=== PATIENT | male | born 1975 | race Caucasian/White ===

== ENCOUNTER 2019-01-25 19:07 | Inpatient (IN) | payer BC, OTHER ==
[2019-01-25] MEDS ORDERED: Piperacillin/Tazobactam 4.5 GM VIAL ONE (19:40)
[2019-01-25 20:12] LABS: Mean Corpuscular Volume 85.9 fL (78.0-98.0)
[2019-01-25 20:21] LABS: ALT (SGPT) 33 U/L (8-55); AST (SGOT) 24 U/L (5-34); Albumin 4.1 g/dL (3.5-5.0); Alkaline Phosphatase 63 U/L (40-150); Anion Gap 13 mmol/L (10-20); BUN (Urea Nitrogen) 13 mg/dL (8.9-20.6); Bilirubin, Total 0.7 mg/dL (0.2-1.2); Calc. Creatinine Clearance 0 mL/min (70-130); Calcium 9.6 mg/dL (7.8-10.44); Carbon Dioxide 24 mmol/L (22-29); Chloride 103 mmol/L (98-107); Estimated GFR-MDRD 85; Glucose 105 mg/dL (70-105); Potassium 3.6 mmol/L (3.5-5.1); Protein, Total 7.1 g/dL (6.0-8.3); Sodium 136 mmol/L (136-145)
[2019-01-25 20:24] LABS: Band 8 % (5-11); Hemoglobin 14.6 g/dL (14.0-18.0); Lymphocytes 17 % (21-51); MDiff Complete? YES; Mean Corpuscular HGB CONC 33.7 g/dL (32.0-36.0); Mean Platelet Volume 8.3 fL (7.4-10.4); Monocytes 2 % (0-10); Neutrophil 73 % (42-75); Platelet Count 122 thou/uL (130-400); Platelet Morphology Comment Appears Adequate; RBC Distribution Width 13.2 % (11.5-14.5); Red Blood Cell (RBC) Count 5.02 mill/uL (4.70-6.10); White Blood Cell (WBC) Count 13.2 thou/uL (4.8-10.8)
--- NOTE | 2019-01-25 22:13 | ULT ---
EXAM: Bilateral lower extremity venous ultrasound HISTORY: Right calf pain with redness and edema COMPARISON: None TECHNIQUE: Multiplanar grayscale and color Doppler images were obtained in a bilateral lower extremit y venous ultrasound. Spectral analysis of the Doppler waveforms were performed. FINDINGS: The bilateral common femoral vein, profunda femoral veins, superficial femoral veins, and p opliteal veins are normal in appearance without visible thrombus. These vessels demonstrate normal compression, flow, and augmentation. There is a small amount of partial thrombus in the right posterior tibial vein. The right greater sap henous vein is patent. The left posterior tibial vein and greater saphenous vein are patent without evidence of DVT. IMPRESSION: 1. No evidence of DVT above the knee. 2. Partially occlusive thrombus in the right posterior tibial vein
[2019-01-25] MEDS ORDERED: Acetaminophen 325 MG TAB PO PRN ×2 (23:11→23:40)
[2019-01-25] MEDS ORDERED: Ondansetron PF 4 MG/2 ML Vial IVP PRN ×2 (23:11→23:40)
[2019-01-25] MEDS ORDERED: Ondansetron ODT 4 MG TAB SL PRN (23:11)
[2019-01-25] MEDS: Sodium Chloride 0.9% 1,000 ML IV SCH (23:30)
[2019-01-25] MEDS ORDERED: Senokot S 8.6-50 MG TAB PO PRN (23:40)
[2019-01-25] MEDS ORDERED: HYDROcodone/Acetaminophen 5/325 mg Tablet PO PRN (23:40)
[2019-01-25] MEDS ORDERED: Calcium Carbonate 500 MG ChewTAB PO PRN (23:40)
[2019-01-25] MEDS ORDERED: Ondansetron ODT 4 MG TAB PO PRN (23:40)
[2019-01-25] MEDS ORDERED: Vancomycin HCl 1 GM in Premix Bag 1 BAG IVPB SCH (23:45)
--- NOTE | 2019-01-26 00:06 | HP ---
CHIEF COMPLAINT: Fever with right lower extremity redness. HISTORY OF PRESENT ILLNESS: The patient is a 43-year-old man who presented to the emergency room with above complaints. Last week, the patient was in [facility] for vacation. He currently works in [place]. He noticed a small pustule on the lateral aspect of the right leg last week. It spontaneously ruptured and healed. Over the last 2 days, the patient noticed erythema over his entire right leg between the knee and the ankle. He denies any erythema or tenderness in the knee or ankle. He also had fever up to 101 degrees Fahrenheit. He had pain that was moderate in intensity. His right upper extremity was warm. He had mild nausea and felt generally weak. He spent most of his time sleeping yesterday due to generalized weakness. He took Tylenol which helped with fever. PAST MEDICAL HISTORY: Reviewed with the patient and none. PAST SURGICAL HISTORY: Reviewed with the patient and none. ALLERGIES: THE PATIENT IS ALLERGIC TO RIFAMPIN, BACTRIM, AND IBUPROFEN. SOCIAL HISTORY: The patient denies any smoking, alcohol, or drug use. He is in [place] most of the time. FAMILY HISTORY: Negative for heart disease or hypercoagulable state. REVIEW OF SYSTEMS: All other review of systems were reviewed and were found negative. PHYSICAL EXAMINATION: VITAL SIGNS: Temperature 98.6, respirations of 19, pulse rate of 93, blood pressure of 169/104, O2 saturation of 96% on room air. GENERAL: A 43-year-old male, in no apparent distress. HEENT: Head; atraumatic, normocephalic. Sclerae are anicteric. Moist mucous membrane. No oral lesion. NECK: Supple. No JVD appreciated. No carotid bruit. LUNGS: Clear to auscultation bilaterally. No wheezing, rales, rhonchi. HEART: S1, S2 present. Regular rate and rhythm. No murmurs, rubs, or gallops appreciated. ABDOMEN: Soft, nontender. Bowel sounds are present. EXTREMITIES: There is significant erythema along with tenderness and warmth in the right leg. No calf tenderness. SKIN: Warm and dry. LYMPH NODES: No palpable lymph nodes in the neck. PERIPHERAL VASCULAR: Radial pulses are palpable bilaterally. MUSCULOSKELETAL: No joint swelling, tenderness. LABORATORY FINDINGS: WBC 13.2, hemoglobin 14.6, hematocrit 43.2, platelet 122. Chemistry showed sodium 136, potassium 3.6, chloride 103, bicarb 24, BUN 13, and creatinine 0.96. LFTs in normal range. Right lower extremity Doppler showed partially occlusive thrombus in the right posterior tibial vein. IMPRESSION: 1. Sepsis secondary to right lower extremity cellulitis. 2. Incidental finding of partially occlusive thrombus in the right posterior tibial vein. 3. Thrombocytopenia of unclear etiology. 4. Bactrim, rifampin, and ibuprofen allergy. PLAN: The patient will be monitored on the medical floor. He received vancomycin and Zosyn in the emergency room. The same antibiotics will be continued. For partially occlusive thrombus in the right posterior tibial vein, I discussed anticoagulation. The patient is declining anticoagulation at this time. He understands the risks, not limited to life threatening complications from pulmonary embolism. He will be traveling out of town next week for work. He will only take anticoagulation if it is necessary. We will consult Hematology for further input. We will recheck labs in a.m. Monitor platelet count. Plan of care was discussed with the patient in detail, he stated understanding. Job ID: [id number]
[2019-01-26 00:26] VITALS: BMI 52.7
[2019-01-26] MEDS: cefTRIAXone\\ROCEPHIN 2 GM in Sodium Chloride 0.9% 100 ML IVPB SCH (00:50)
[2019-01-26] MEDS ORDERED: Vancomycin HCl 1.5 GM in Sodium Chloride 0.9% 250 ML 300 ML IVPB SCH (01:15)
[2019-01-26] MEDS ORDERED: Piperacillin/Tazobactam 4.5 GM in Sodium Chloride 0.9% 100 ML IVPB SCH (04:00)
[2019-01-26 06:34] LABS: Band 10 % (5-11); Hemoglobin 13.6 g/dL (14.0-18.0); INR-International Normal Ratio 1.1; Lymphocytes 12 % (21-51); MDiff Complete? YES; Mean Corpuscular HGB CONC 33.3 g/dL (32.0-36.0); Mean Corpuscular Hemoglobin 28.7 pg (27.0-31.0); Mean Platelet Volume 8.4 fL (7.4-10.4); Monocytes 8 % (0-10); Neutrophil 70 % (42-75); PTT 31.5 SEC (22.9-36.1); Platelet Count 112 thou/uL (130-400); Platelet Morphology Comment Appears Decreased; Prothrombin Time 14.5 SEC (12.0-14.7); RBC Distribution Width 13.2 % (11.5-14.5); Red Blood Cell (RBC) Count 4.73 mill/uL (4.70-6.10); White Blood Cell (WBC) Count 10.9 thou/uL (4.8-10.8)
[2019-01-26 06:43] LABS: Anion Gap 11 mmol/L (10-20); BUN (Urea Nitrogen) 12 mg/dL (8.9-20.6); Calc. Creatinine Clearance 251 mL/min (70-130); Calcium 8.8 mg/dL (7.8-10.44); Carbon Dioxide 23 mmol/L (22-29); Chloride 106 mmol/L (98-107); Estimated GFR-MDRD Greater than 90; Glucose 113 mg/dL (70-105); Potassium 3.8 mmol/L (3.5-5.1); Sodium 136 mmol/L (136-145)
[2019-01-26] MEDS ORDERED: Vancomycin HCl 1 GM in Premix Bag 1 BAG IVPB SCH (09:00)
[2019-01-26] MEDS ORDERED: Vancomycin HCl 1.75 GM in Sodium Chloride 0.9% 500 ML IVPB SCH (09:00)
[2019-01-26] MEDS: Sodium Chloride 0.9% 1,000 ML IV SCH (09:06)
[2019-01-26] MEDS: Enoxaparin Sodium 40 MG/0.4 ML SYRINGE SC SCH (09:06)
--- NOTE | 2019-01-26 11:08 | PDOC.PN ---
- Subjective Encounter Start Date: 01/26/19 Encounter Start Time: 09:30 Doing well. No complaints. No significant leg pain. - Objective Resuscitation Status - Order Detail: 01/25/19 23:40 Resuscitation Status Routine Resuscitation Status: FULL: Full Resuscitation Vital Signs & Weight: Vital Signs (12 hours) Temp Pulse Resp BP Pulse Ox 01/26/19 09:00 97 01/26/19 07:22 99.9 F H 88 20 157/88 H 97 01/26/19 04:00 100.3 F H 88 18 117/73 98 01/26/19 00:17 99.5 F 84 18 153/87 H 99 01/25/19 23:40 99 Weight Weight 357 lb 7 oz I&O: 01/25/19 01/26/19 01/27/19 06:59 06:59 06:59 Intake Total 400 Output Total 1175 Balance -775 Result Diagrams: 01/26/19 06:05 01/26/19 06:05 Phys Exam - Physical Examination Constitutional: NAD Mobidly obese Respiratory: no wheezing, no rales, no rhonchi, clear to auscultation bilateral Cardiovascular: RRR, no significant murmur, no rub Gastrointestinal: soft, non-tender, no distention, positive bowel sounds Musculoskeletal: no edema Varicose veins. Neurological: non-focal, normal sensation Psychiatric: normal affect, A&O x 3 Deviation from normal: RLE with erythema that has regressed from the upper end of the -: demarcation. Still circumf erythem and edema of calf. Dx/Plan (1) Cellulitis of right lower leg Code(s): L03.115 - CELLULITIS OF RIGHT LOWER LIMB Status: Acute (2) Morbid obesity Code(s): E66.01 - MORBID (SEVERE) OBESITY DUE TO EXCESS CALORIES Status: Acute (3) Varicose vein of leg Code(s): I83.90 - ASYMPTOMATIC VARICOSE VEINS OF UNSPECIFIED LOWER EXTREMITY Status: Acute - Plan * Slight improvement. * Continue IV Vanc and Zosyn. * Remarked the border. * ID consult for recurrent cellulitis of the leg and arm. * Patient travels a great deal by plane. Sits at a desk. He is using compression stockings.
--- NOTE | 2019-01-26 16:33 | CON ---
DATE OF CONSULTATION: REASON FOR CONSULTATION: DVT. HISTORY OF PRESENT ILLNESS: A 43-year-old male presented to the hospital with right leg erythema. The patient works in [place] and recently was on vacation in [facility] with a total fight time of 6 hours including layover and states while he was on vacation, he noticed a small pustule on his right leg that ruptured and healed, but over the last couple of days, the leg became red between knee and ankle. He denies any pain at this time. He had a fever up to 101. He states he has never had a blood clot and has no family history of blood clots. A venogram showed a nonobstructive DVT in the right posterior tibial vein. Dr. Simons had discussed anticoagulation with him and he had declined, so I was consulted to speak with him further. PAST MEDICAL HISTORY: None. PAST SURGICAL HISTORY: None. ALLERGIES: RIFAMPIN, BACTRIM, IBUPROFEN. SOCIAL HISTORY: No smoking or alcohol. FAMILY HISTORY: No blood clots. REVIEW OF SYSTEMS: Negative, except as per HPI. PHYSICAL EXAMINATION: VITAL SIGNS: Temperature T-max 100.3, pulse 77, respirations 19, saturating 98% on room air, blood pressure 136/85. GENERAL APPEARANCE: The patient is lying in bed, in no acute distress. HEENT: Normocephalic, atraumatic. Sclerae are anicteric. NECK: Supple. LUNGS: Nonlabored. Clear to auscultation. HEART: S1, S2. Regular rhythm and rate. ABDOMEN: Soft, nondistended, and nontender. EXTREMITIES: There is significant erythema and warmth on the right lower extremity that does appear to be improving based on markings and very mild calf tenderness. NEUROLOGIC: Cranial nerves 2 through 12 grossly are intact. PSYCHIATRIC: Awake, alert, and oriented x3. LABORATORY DATA: White blood cells 10.9, hemoglobin 13.6, platelets 112. Sodium 136, potassium 3.8, BUN 12, creatinine 0.87. IMAGING STUDIES: Right lower extremity Doppler shows partially occlusive thrombus in the right posterior tibial vein. ASSESSMENT AND PLAN: A 43-year-old male with right lower extremity cellulitis and partially occlusive right posterior tibial deep vein thrombosis. I spoke to patient in detail about the risk of DVT, being left untreated and risk of pulmonary embolism, which is approximately 50% if left untreated even for a partially occlusive thrombus. I explained the risk of PE including the risk of sudden with the patient, and he stated understanding and still declined any anticoagulation. I advised him to monitor for the signs and symptoms of worsening DVT as well as PE, and he is encouraged to seek help from a physician immediately. His mild thrombocytopenia is likely secondary to sepsis from his cellulitis and no acute workup is necessary at this time. Thank you for this consult. Job ID: [id number]
--- NOTE | 2019-01-26 18:47 | CON ---
DATE OF CONSULTATION: 01/26/2019 REASON FOR CONSULTATION: Cellulitis, right leg. HISTORY OF PRESENT ILLNESS: A 43-year-old with history of obesity, who developed cellulitis in the right leg. This seems to be the 2nd or 3rd episode over the past many years. He does wear compression stockings, usually only when he is at work. During his vacation, he did not wear them. No headaches, visual symptoms, sore throat, odynophagia, or dysphagia. No cough or sputum production. No chest pain. No abdominal pain or diarrhea. No genitourinary symptoms. No joint symptoms. PAST MEDICAL HISTORY: Obesity, prior cellulitis episodes, and venous insufficiency. PAST SURGICAL HISTORY: Negative. ALLERGIES: RIFAMPIN, BACTRIM WITH RASH, AND IBUPROFEN. 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 Never smoker. . FAMILY HISTORY: Noncontributory. CURRENT MEDICATIONS: 1. Tylenol. 2. [place]. 3. Tums. 4. Ceftriaxone. 5. Lovenox. 6. Ondansetron. 7. Vancomycin. PHYSICAL EXAMINATION: VITAL SIGNS: T-max 99.9 to 100.3. Other vital signs are normal. SKIN: Shows areas of scattered erythema in a circumferential distribution in the right mid leg region. No evidence of abscess. HEENT: Normal. NECK: Supple. No lymphadenopathy. LUNGS: Clear. HEART: S1 and S2. Regular rate. ABDOMEN: Soft. Not distended or tender. No bladder distention. EXTREMITIES: No joint inflammatory activity. Pulses are excellent. NEUROLOGIC: Nonfocal including cognitive function. LABORATORY DATA: White cell count 13,000, down to 10.9; platelets 112; lymphocytes 12. INR 1.1. Chemistry normal. Microbiology, thus far negative blood cultures. IMAGING DATA: Duplex ultrasound negative. ASSESSMENT: Obesity, recurrent episodes of cellulitis, venous insufficiency and another episode of cellulitis. DISCUSSION: Most likely scenario is beta-hemolytic streptococcal cellulitis. Staphylococcus cellulitis is less likely. Continue Rocephin. Discontinue vancomycin. Eventual discharge on oral Keflex and then chronic suppression with Pen VK 250 mg twice daily for 1 year plus regular use of compression stockings. He already has compression stockings, just has to use them more consistently. Job ID: [id number]
[2019-01-27] MEDS: cefTRIAXone\\ROCEPHIN 2 GM in Sodium Chloride 0.9% 100 ML IVPB SCH (00:05)
[2019-01-27 00:16] LABS: Vancomycin, Trough 5.3 ug/mL
[2019-01-27 05:15] LABS: #Eosinphils 0.1 thou/uL (0.0-0.7); #Lymphocytes 1.9 thou/uL (1.20-3.40); #Monocytes 0.9 thou/uL (0.11-0.59); #Neutrophils 4.1 thou/uL (1.40-6.50); %Basophils 0.4 % (0.0-1.0); %Eosinophils 1.4 % (0.0-10.0); %Lymphocytes 26.9 % (21.0-51.0); %Monocytes 12.7 % (0.0-10.0); %Neutrophils 58.6 % (42.0-75.0); Hemoglobin 12.7 g/dL (14.0-18.0); Mean Corpuscular HGB CONC 33.4 g/dL (32.0-36.0); Mean Corpuscular Hemoglobin 29.1 pg (27.0-31.0); Mean Corpuscular Volume 87.1 fL (78.0-98.0); Mean Platelet Volume 8.6 fL (7.4-10.4); Platelet Count 122 thou/uL (130-400); RBC Distribution Width 13.4 % (11.5-14.5); Red Blood Cell (RBC) Count 4.35 mill/uL (4.70-6.10); White Blood Cell (WBC) Count 6.9 thou/uL (4.8-10.8)
[2019-01-27 05:26] LABS: Anion Gap 9 mmol/L (10-20); BUN (Urea Nitrogen) 13 mg/dL (8.9-20.6); Calc. Creatinine Clearance 221 mL/min (70-130); Calcium 8.9 mg/dL (7.8-10.44); Carbon Dioxide 31 mmol/L (22-29); Chloride 106 mmol/L (98-107); Estimated GFR-MDRD 83; Glucose 126 mg/dL (70-105); Potassium 4.2 mmol/L (3.5-5.1); Sodium 142 mmol/L (136-145)
[2019-01-27] MEDS: Enoxaparin Sodium 40 MG/0.4 ML SYRINGE SC SCH (08:39)
[2019-01-27 11:23] VITALS: TEMP 98.4
[2019-01-27 11:54] VITALS: BP 144/91
--- NOTE | 2019-01-27 16:01 | DIS ---
DATE OF ADMISSION: 01/25/2019 DATE OF DISCHARGE: 01/27/2019 DISCHARGE DISPOSITION: Home. PRIMARY DISCHARGE DIAGNOSIS: Recurrent right lower extremity cellulitis with deep venous thrombosis. PROCEDURES DONE DURING HOSPITALIZATION: The patient had ultrasound venous Doppler done on right lower extremity, which showed partially occlusive thrombus in the right posterior tibial vein. Blood cultures x2, no growth. Had a white count of 13 on the day of admission with discharge number of 6.9. DISCHARGE MEDICATIONS: Keflex 500 mg p.o. three times daily for another 10 days and to start penicillin VK 250 mg twice daily, thereafter for a period of one year for recurrent cellulitis prophylaxis. ALLERGIES: ALLERGIC TO BACTRIM, MOTRIN, RIFAMPIN. INPATIENT CONSULT: Dr. Veto Mast for Oncology, Dr. Diaz for Infectious Disease. BRIEF COURSE DURING HOSPITALIZATION: The patient initially came to ER with complaints of fever and right lower extremity redness. The patient has known history of right lower extremity cellulitis. This time around, he was found to have had partial thrombus in the posterior tibial vein in the right lower extremity in addition to cellulitis. He was placed on IV antibiotics. Blood cultures x2 were negative. The patient did not want to have any anticoagulants. He clearly understands the risks of life-threatening complications from pulmonary embolism. The patient is worried that he might lose his contract for his job if he is on anticoagulation. He was counseled on multiple occasions by our team, Dr. Veto Mast and Dr. Diaz, despite which the patient has insisted that he would not want to be on anticoagulation. This morning, he is wanting to go home. He has been placed on Keflex 3 times daily to be continued for 10 days and the patient needs to start penicillin VK twice daily for a period of 1 year to prevent recurrence of cellulitis. He needs to follow up with his primary care physician in 1 week. Please note I have seen and examined the patient on the day of discharge. Job ID: [id number]
--- NOTE | 2019-01-27 16:29 | PQF ---
CLINICAL DOCUMENTATION IMPROVEMENT CLARIFICATION FORM: ICD-10 Updated PLEASE DO AN ADDENDUM TO THE PROGRESS NOTE WITH ANY DOCUMENTATION UPDATES OR ADDITIONS AND CARRY THROUGH TO DC SUMMARY. THANK YOU. DATE: 01/27/2019 ATTN: Dr. Vidal Please exercise your independent, professional judgment in responding to the clarification form. Clinical indicators are provided on the bottom of this form for your review Please check appropriate box(s) to clarify if the following diagnosis has been ruled in or ruled out: SEPSIS [ x] Ruled in diagnosis [ ] Continue to treat [ x] Resolved [ ] Ruled out diagnosis [ ] Cannot rule out diagnosis [ ] Other diagnosis [ ] Unable to determine In addition, please specify: Present on Admission (POA): [x ] Yes [ ] No [ ] Unable to determine For continuity of documentation, please document condition throughout progress notes and discharge summary. Thank You. CLINICAL INDICATORS - SIGNS / SYMPTOMS / LABS H&P 6/: had fever up to 101 degrees Fahrenheit WBC 13.2 Sepsis secondary to right lower extremity cellulitis DC Summary: Recurrent right lower extremity cellulitis with deep venous thrombosis Blood cultures x2 , no growth RISKS: PN 6/2: Cellulitis of right lower leg. Morbid obesity TREATMENT: PN 6/2: Continue IV Vanc and Zosyn ID consult for recurrent cellulitis of the leg and arm Thank you, Andree (This form is maintained as a part of the permanent medical record) 2014 [employer]. All Rights Reserved Andree Rodriguez RN, BSN [email or web address] Office: [phone] [facility]
== END 2019-01-27 11:55 | disposition home or self-care (01) | DRG 872 ==
LOC: ERS 19:07 → T4-A 22:36
PROVIDERS: ADMIT Internal Medicine; ATTEND Internal Medicine
DX: A41.9 Sepsis, unspecified organism (principal); L03.115 Cellulitis of right lower limb; I82.441 Acute embolism and thrombosis of right tibial vein; Z68.43 Body mass index [BMI] 50.0-59.9, adult; D69.6 Thrombocytopenia, unspecified; E66.01 Morbid (severe) obesity due to excess calories; I83.90 Asymptomatic varicose veins of unspecified lower extremity; Z88.1 Allergy status to other antibiotic agents; Z88.6 Allergy status to analgesic agent
CPT/HCPCS: 36415; 80048; 80053; 80202; 83605; 85007; 85025; 85027; 85610; 85730; 87040; 93970; J0696; J1650; J2543; J3370; J3490; J7050

== ENCOUNTER 2019-07-11 18:01 | Emergency (ER) | payer OTHER | END 2019-07-11 18:54 | disposition home or self-care (01) | LOC: ERS 18:01 | DX: L03.116 Cellulitis of left lower limb (principal) | CPT/HCPCS: 99283 ==